=== PATIENT | male | born 1975 | race Caucasian/White ===

== ENCOUNTER 2025-04-09 10:07 | Emergency (ER) | payer BC ==
[~2025-04-09] VITALS: Ht 185.4 cm; Wt 86.2 kg
[2025-04-09] MEDS ORDERED: LIDOCAINE 1%-EPI 1:100,000 20 ML VIAL ONE (10:53)
[2025-04-09] MEDS: LIDOCAINE 1%-EPI 1:100,000 20 ML VIAL TP ONE (11:02)
[2025-04-09 12:19] VITALS: BP 145/75; TEMP 98.7; O2SAT 98
== END 2025-04-09 12:20 | disposition home or self-care (01) ==
LOC: ER 10:07
DX: S01.112A Laceration without foreign body of left eyelid and periocular area, initial encounter (principal); V00.131A Fall from skateboard, initial encounter; Y93.51 Activity, roller skating (inline) and skateboarding; Y92.89 Other specified places as the place of occurrence of the external cause; Y99.8 Other external cause status
CPT/HCPCS: 99282; 12013; J3490